=== PATIENT | male | born 1990 | race Caucasian/White ===

== ENCOUNTER 2025-04-04 18:00 | Emergency (ER) | payer BC ==
[~2025-04-04] VITALS: Ht 180.3 cm; Wt 66.7 kg
[2025-04-04 19:28] VITALS: BP 126/77; TEMP 97.6; O2SAT 97
== END 2025-04-04 19:28 | disposition home or self-care (01) ==
LOC: ER 18:09
DX: M79.662 Pain in left lower leg (principal)
CPT/HCPCS: 93971-TC